=== PATIENT | male | born 1955 | race American Indian/Alaskan Native ===

== ENCOUNTER 2017-03-22 18:32 | Emergency (ER) | payer OTHER ==
[2017-03-22] MEDS ORDERED: FUL-GLO OP ONE (18:44)
[2017-03-22] MEDS ORDERED: BSS ONE (18:44)
[2017-03-22] MEDS ORDERED: TETRACAINE 0.5% ONE (18:44)
[2017-03-22 19:08] VITALS: BP 143/76
--- NOTE | 2017-03-22 19:20 | Emergency Department Report ---
ED Eye Problem HPI - General Chief complaint: Eye Problems Stated complaint: LEFT EYE INJURY Time Seen by Provider: 03/22/17 18:52 Source: patient Mode of arrival: Ambulatory Limitations: No Limitations - History of Present Illness MD chief complaint: eye pain -: Sudden Onset Description: sudden Location: left eye Place: home If Injury: none Eye Symptoms: burning, redness Severity: severe Severity scale (0 -10): 7 If Pain, Quality: sharp Consistency: constant Context: trauma Associated Symptoms: other (redness) Treatments Prior to Arrival: none - Related Data Patient Tetanus UTD: Yes Previous Rx's Medication Instructions Recorded Last Taken Type Polymyxin B Sulf/Trimethoprim 1 drop OP QID #1 bottle 03/22/17 Unknown Rx [Polytrim Eye Drops [id number]/0.1%] Allergies Allergy/AdvReac Type Severity Reaction Status Date / Time No Known Allergies Allergy Unverified 03/22/17 18:36 ED Review of Systems ROS: Stated complaint: LEFT EYE INJURY Other details as noted in HPI Comment: All other systems reviewed and negative Eyes: eye pain Respiratory: no symptoms reported ED Past Medical Hx - Past Medical History Previous Medical History?: No - Surgical History Past Surgical History?: No - Family History Family history: hypertension - Social History Smoking Status: Never Smoker Substance Use Type: Alcohol - Medications Home Medications: Home Medications Medication Instructions Recorded Confirmed Last Taken Type Polymyxin B Sulf/Trimethoprim 1 drop OP QID #1 bottle 03/22/17 Unknown Rx [Polytrim Eye Drops [id number]/0.1%] ED Physical Exam - General Limitations: No Limitations General appearance: alert - Head Head exam: Present: atraumatic, other (left eyelid with minimal swelling) - Eye Eye exam: Present: other (left corneal abrasion) Pupils: Present: normal accommodation, other - ENT ENT exam: Present: normal exam, normal orophraynx - Neck Neck exam: Present: normal inspection - Respiratory Respiratory exam: Present: normal lung sounds bilaterally - Cardiovascular Cardiovascular Exam: Present: regular rate, normal heart sounds - GI/Abdominal GI/Abdominal exam: Present: soft - Back Exam Back exam: Present: normal inspection - Neurological Exam Neurological exam: Present: alert, oriented X3 - Psychiatric Psychiatric exam: Present: normal affect - Skin Skin exam: Present: warm ED Course Vital Signs 03/22/17 03/22/17 03/22/17 18:36 19:07 19:08 Temperature 98.5 F Pulse Rate 89 77 Respiratory 16 18 18 Rate Blood Pressure 176/89 Blood Pressure 143/76 [Right] O2 Sat by Pulse 100 99 99 Oximetry - Reevaluation(s) Reevaluation #1: 03/22/17 19:17 Tetracycline drop applied, left eye flushed with normal saline. Patient tolerated procedure well, feels much better. Critical care attestation.: If time is entered above; I have spent that time in minutes in the direct care of this critically ill patient, excluding procedure time. ED Disposition Clinical Impression: Left corneal abrasion Disposition: DC-01 TO HOME OR SELFCARE Is pt being admited?: No Does the pt Need Aspirin: No Condition: Stable Prescriptions: Polymyxin B Sulf/Trimethoprim [Polytrim Eye Drops [id number]/0.1%] 1 drop OP QID #1 bottle Referrals: PRIMARY CAREMD [Primary Care Provider] - 3-5 Days ERIN LEE MD [Staff Physician] - 3-5 Days
== END 2017-03-22 19:40 | disposition home or self-care (01) ==
LOC: ED 18:32
DX: S05.02XA Injury of conjunctiva and corneal abrasion without foreign body, left eye, initial encounter (principal); X58.XXXA Exposure to other specified factors, initial encounter; Y93.89 Activity, other specified; Y92.89 Other specified places as the place of occurrence of the external cause; Y99.8 Other external cause status
CPT/HCPCS: 99282